=== PATIENT | female | born 1995 | race Caucasian/White ===

== ENCOUNTER 2019-10-01 06:22 | Emergency (ER) | payer MEDICAID ==
[~2019-10-01] VITALS: Ht 157.5 cm; Wt 53.0 kg
[2019-10-01 06:56] VITALS: BP 156/100
[2019-10-01] MEDS ORDERED: HYDROCODONE/ACETAMINOPHEN 5/325MG TABLET PO ONE (07:00)
[2019-10-01] MEDS ORDERED: IBUPROFEN 600MG TABLET PO ONE (07:00)
== END 2019-10-01 09:40 | disposition home or self-care (01) ==
LOC: ER 06:22
DX: S52.354A Nondisplaced comminuted fracture of shaft of radius, right arm, initial encounter for closed fracture (principal); S20.219A Contusion of unspecified front wall of thorax, initial encounter; S00.81XA Abrasion of other part of head, initial encounter; S70.212A Abrasion, left hip, initial encounter; V43.52XA Car driver injured in collision with other type car in traffic accident, initial encounter; W22.11XA Striking against or struck by driver side automobile airbag, initial encounter; Y93.89 Activity, other specified; Y92.488 Other paved roadways as the place of occurrence of the external cause
CPT/HCPCS: 29105; 71045; 73080; 73090; 73110; 73502; 99284